=== PATIENT | male | born 1955 | race Caucasian/White ===

== ENCOUNTER 2022-10-25 07:05 | Emergency (ER) | payer MEDICARE ==
[~2022-10-25] VITALS: Ht 182.9 cm; Wt 131.0 kg
[2022-10-25] MEDS ORDERED: ATOR1TAB19 PO (07:36)
[2022-10-25] MEDS ORDERED: ATOR1TAB21 PO (07:36)
[2022-10-25] MEDS ORDERED: METO1TAB87 PO (07:38)
[2022-10-25] MEDS ORDERED: LIDOCAINE W/EPINEPHRINE 1% 20ML VIAL SC ONE (09:35)
[2022-10-25 10:20] VITALS: BP 131/68; TEMP 97.9; O2SAT 98
== END 2022-10-25 10:50 | disposition home or self-care (01) ==
LOC: M ED 07:05
DX: S80.851A Superficial foreign body, right lower leg, initial encounter (principal); Y92.830 Public park as the place of occurrence of the external cause; Z79.02 Long term (current) use of antithrombotics/antiplatelets; Z79.899 Other long term (current) drug therapy